=== PATIENT | female | born 1990 | race African-American/Black ===

== ENCOUNTER 2017-03-12 23:35 | Emergency (ER) | payer MEDICAID, MEDICARE ==
[~2017-03-12] VITALS: Ht 167.6 cm; Wt 137.0 kg
[~2017-03-12 23:35] MED LIST: METF850T2 PO
[2017-03-13] MEDS ORDERED: TRAMADOL 50MG TABLET PO ONE (02:45)
[2017-03-13 02:56] LABS: BASOPHILS % 0.7 % (0.0-2.0); EOSINOPHILS % 0.5 % (0.0-5.0); HEMATOCRIT. 35.8 % (36.0-48.0); HEMOGLOBIN. 11.9 g/dL (12.0-16.0); LYMPHOCYTES % 20.2 % (20.0-50.0); MEAN CORPUSCULAR HEMOGLOBIN 24.2 pg (28.0-32.0); MEAN PLATELET VOLUME 8.3 fl (7.4-10.4); MONOCYTES % 9.6 % (2.0-8.0); PLATELET 240 x1000/uL (130-400); RED CELL DISTRIBUTION WIDTH 16.5 % (11.6-14.6)
[2017-03-13 02:56] LABS: CLARITY URINE CLOUDY (CLEAR); COLOR URINE YELLOW (YELLOW); GLUCOSE URINE NEGATIVE (NEGATIVE); KETONES URINE NEGATIVE (NEGATIVE); LEUKOCYTE ESTERASE URINE 3+ (NEGATIVE); NITRITE URINE POSITIVE (NEGATIVE); OCCULT BLOOD URINE 2+ (NEGATIVE); PROTEIN URINE 1+ (NEGATIVE); SPECIFIC GRAVITY URINE 1.015 (1.005-1.030); UROBILINOGEN URINE 0.2 E.U./dL (0.2-1.0)
[2017-03-13 03:04] LABS: PARTIAL THROMBOPLASTIN TIME 27.8 sec (24.0-34.0); PROTHROMBIN TIME 10.5 sec
[2017-03-13 03:12] LABS: CARBON DIOXIDE 27 mEq/L (21-32); CHLORIDE 107 mEq/L (98-107)
[2017-03-13] MEDS ORDERED: AMOXICILLIN/POTASSIUM CLAVULANATE 875/125MG TAB PO ONE (05:45)
[2017-03-13 05:59] VITALS: BP 135/85
[2017-03-14] MEDS ORDERED: JANUVIA (17:46)
[2017-03-14] MEDS ORDERED: LORATIDINE (17:46)
[2017-03-14] MEDS ORDERED: LISINOPRIL (17:46)
[2017-03-14] MEDS ORDERED: GLIP10TA10 PO (17:46)
== END 2017-03-13 06:20 | disposition home or self-care (01) ==
LOC: ER 23:35
DX: N12 Tubulo-interstitial nephritis, not specified as acute or chronic (principal); I10 Essential (primary) hypertension; E11.9 Type 2 diabetes mellitus without complications
CPT/HCPCS: 36415; 80053; 81001; 83690; 85025; 85610; 85730; 99284; Z7610

== ENCOUNTER 2017-03-14 09:51 | Observation (INO) | payer MEDICAID, MEDICARE ==
[~2017-03-14] VITALS: Ht 167.6 cm; Wt 138.4 kg
[2017-03-14] MEDS ORDERED: ACETAMINOPHEN 325MG TABLET PO STA (10:09)
[2017-03-14] MEDS ORDERED: MORPHINE SULFATE 4 MG/ML CPJ (NOT FOR IM USE) IV STA (10:09)
[2017-03-14] MEDS ORDERED: ONDANSETRON HCL 4MG/2ML VIAL IV STA (10:09)
[2017-03-14] MEDS ORDERED: CEFTRIAXONE 1 G PREMIX 50 ML IV ONE (10:15)
[2017-03-14] MEDS ORDERED: SODIUM CHLORIDE 0.9% 1000ML BAG (SEPSIS BOLUS) IV ONE (10:15)
[2017-03-14 10:30] LABS: BASOPHILS % 0.5 % (0.0-2.0); EOSINOPHILS % 0.1 % (0.0-5.0); HEMATOCRIT. 38.3 % (36.0-48.0); HEMOGLOBIN. 12.4 g/dL (12.0-16.0); LYMPHOCYTES % 17.7 % (20.0-50.0); MEAN CORPUSCULAR HEMOGLOBIN 23.7 pg (28.0-32.0); MEAN PLATELET VOLUME 8.6 fl (7.4-10.4); MONOCYTES % 3.4 % (2.0-8.0); NEUTROPHILS % 78.3 % (40.0-76.0); PLATELET 215 x1000/uL (130-400); RED BLOOD CELL COUNT 5.24 mill/uL (4.2-5.4); RED CELL DISTRIBUTION WIDTH 16.5 % (11.6-14.6)
[2017-03-14 10:38] LABS: INR 1.1; PROTHROMBIN TIME 11.9 sec
[2017-03-14 10:46] LABS: HCG SCREEN NEGATIVE
[2017-03-14 10:48] LABS: CARBON DIOXIDE 26 mEq/L (21-32); CHLORIDE 100 mEq/L (98-107); TROPONIN I < 0.02 ng/mL (0.00-0.04)
[2017-03-14] MEDS ORDERED: LEVOFLOXACIN 500MG PREMIX 100 ML IV ONE (11:00)
[2017-03-14] MEDS ORDERED: IBUPROFEN 800MG TABLET PO ONE (11:00)
[2017-03-14 12:03] LABS: GLUCOSE URINE NEGATIVE (NEGATIVE); KETONES URINE 1+ (NEGATIVE); LEUKOCYTE ESTERASE URINE 1+ (NEGATIVE); NITRITE URINE NEGATIVE (NEGATIVE); OCCULT BLOOD URINE 1+ (NEGATIVE); PROTEIN URINE 1+ (NEGATIVE); SPECIFIC GRAVITY URINE 1.014 (1.005-1.030)
[2017-03-14 12:12] LABS: CLARITY URINE CLOUDY (CLEAR); COLOR URINE DARK YELLOW (YELLOW)
[2017-03-14 16:00] VITALS: BP 132/72
[2017-03-14] MEDS ORDERED: SODIUM CHLORIDE 0.45% 1,000 ML IV SCH (17:45)
[2017-03-14] MEDS ORDERED: DEXTROSE 50% WATER 50ML SYRINGE IV PRN (17:45)
[2017-03-14] MEDS ORDERED: HYDROCODONE/ACETAMINOPHEN 5/325MG TABLET PO PRN ×2 (17:45→21:45)
[2017-03-14] MEDS ORDERED: LORATIDINE (17:46)
[2017-03-14] MEDS ORDERED: LISINOPRIL (17:46)
[2017-03-14] MEDS ORDERED: GLIP10TA10 PO (17:46)
[2017-03-14] MEDS ORDERED: JANUVIA (17:46)
[2017-03-14 18:03] VITALS: BP 132/72
[2017-03-14] MEDS ORDERED: ONDANSETRON HCL 4MG/2ML VIAL IV PRN ×2 (19:30→21:45)
[2017-03-14] MEDS: ACETAMINOPHEN 325MG TABLET PO PRN (19:32)
[2017-03-14] MEDS: PANTOPRAZOLE SODIUM 40 MG/VIAL IV SCH (19:43)
[2017-03-14 20:00] VITALS: BP 141/85
[2017-03-14] MEDS: INSULIN LISPRO 100 UNITS/ML SUBCUT SCH (21:03)
[2017-03-14] MEDS: BLOOD SUGAR DIAGNOSTIC STRIP TEST SCH (21:03)
[2017-03-14] MEDS ORDERED: IPRATROPIUM/ALBUTEROL 0.5-3(2.5)MG/3ML NEB INH PRN (21:45)
[2017-03-14] MEDS ORDERED: ACETAMINOPHEN 325MG TABLET PO PRN (21:45)
[2017-03-14] MEDS ORDERED: CLONIDINE 0.1MG TABLET PO PRN (21:45)
[2017-03-14] MEDS: SODIUM CHLORIDE 0.45% 1,000 ML IV SCH (22:28)
[2017-03-14] MEDS: ENOXAPARIN 40MG/0.4ML SYR SUBCUT SCH (22:29)
[2017-03-14 23:30] LABS: CARBON DIOXIDE 26 mEq/L (21-32); CHLORIDE 104 mEq/L (98-107); CREATINE KINASE 164 IU/L (26-192); TROPONIN I 0.03 ng/mL (0.00-0.04)
[2017-03-14] MEDS ORDERED: PIPERACILLIN/TAZOBACTAM 3.375GM/50ML PREMIX IV ONE (23:45)
[2017-03-15] VITALS: BP 126/76
[2017-03-15] MEDS: PIPERACILLIN/TAZ 3.375G PREMIX 50 ML IV SCH ×4 (01:11→18:03)
[2017-03-15] MEDS ORDERED: GENTAMICIN SULFATE 180 MG in SODIUM CHLORIDE 0.9% 100 ML IV NR (02:00)
[2017-03-15 04:00] VITALS: BP 122/80
[2017-03-15 05:47] LABS: BASOPHILS % 0.2 % (0.0-2.0); HEMATOCRIT. 36.1 % (36.0-48.0); HEMOGLOBIN. 11.8 g/dL (12.0-16.0); LYMPHOCYTES % 9.8 % (20.0-50.0); MEAN CORPUSCULAR HEMOGLOBIN 23.9 pg (28.0-32.0); MEAN CORPUSCULAR VOLUME 73.1 fL (81.0-99.0); MEAN PLATELET VOLUME 9.1 fl (7.4-10.4); MONOCYTES % 7.7 % (2.0-8.0); NEUTROPHILS % 82.3 % (40.0-76.0); PLATELET 179 x1000/uL (130-400); RED BLOOD CELL COUNT 4.94 mill/uL (4.2-5.4); RED CELL DISTRIBUTION WIDTH 16.4 % (11.6-14.6)
[2017-03-15] MEDS: BLOOD SUGAR DIAGNOSTIC STRIP TEST SCH ×4 (05:56→21:17)
[2017-03-15] MEDS: INSULIN LISPRO 100 UNITS/ML SUBCUT SCH ×4 (06:07→21:23)
[2017-03-15 06:51] LABS: T4 FREE 1.17 ng/dL (0.76-1.46); TROPONIN I 0.09 ng/mL (0.00-0.04)
[2017-03-15 08:00] VITALS: BP 109/65
[2017-03-15] MEDS: ENOXAPARIN 40MG/0.4ML SYR SUBCUT SCH ×2 (09:00→21:24)
[2017-03-15] MEDS: SODIUM CHLORIDE 0.45% 1,000 ML IV SCH (10:10)
[2017-03-15] MEDS: PANTOPRAZOLE SODIUM 40 MG/VIAL IV SCH (10:10)
[2017-03-15] MEDS: GENTAMICIN SULFATE 140 MG in SODIUM CHLORIDE 0.9% 100 ML IV SCH ×2 (10:10→19:38)
[2017-03-15] MEDS ORDERED: LEVOFLOXACIN 500MG PREMIX 100 ML IV SCH (11:00)
[2017-03-15 11:59] VITALS: BP 118/85
[2017-03-15] MEDS ORDERED: ZOSYN PER PHARMACY XX SCH (14:30)
[2017-03-15 15:57] VITALS: BP 130/89
[2017-03-15 20:00] VITALS: BP 114/74
[2017-03-15] MEDS ORDERED: INSULIN DETEMIR UD 100 UNITS/ML SYR SUBCUT SCH (22:00)
[2017-03-16 00:15] VITALS: BP 113/74
[2017-03-16] MEDS: PIPERACILLIN/TAZ 3.375G PREMIX 50 ML IV SCH ×3 (00:29→11:46)
[2017-03-16] MEDS: SODIUM CHLORIDE 0.45% 1,000 ML IV SCH (01:15)
[2017-03-16] MEDS: GENTAMICIN SULFATE 140 MG in SODIUM CHLORIDE 0.9% 100 ML IV SCH ×2 (01:15→10:10)
[2017-03-16] MEDS: ACETAMINOPHEN 325MG TABLET PO PRN (03:21)
[2017-03-16 04:00] VITALS: BP 132/94
[2017-03-16] MEDS: BLOOD SUGAR DIAGNOSTIC STRIP TEST SCH ×2 (05:54→11:10)
[2017-03-16] MEDS: INSULIN LISPRO 100 UNITS/ML SUBCUT SCH ×2 (06:27→11:52)
[2017-03-16 08:00] VITALS: BP 118/83
[2017-03-16] MEDS: ENOXAPARIN 40MG/0.4ML SYR SUBCUT SCH (08:23)
[2017-03-16 08:48] LABS: CARBON DIOXIDE 28 mEq/L (21-32); CHLORIDE 102 mEq/L (98-107)
[2017-03-16 08:51] LABS: GENTAMICIN TROUGH 0.6 ug/mL (<2.0)
[2017-03-16] MEDS ORDERED: FAMOTIDINE 20MG/2ML VIAL IV SCH (09:00)
[2017-03-16 12:00] VITALS: BP 120/94
[2017-03-16 13:35] VITALS: BP 129/94
[2017-03-16] MEDS ORDERED: GENTAMICIN SULFATE 180 MG in SODIUM CHLORIDE 0.9% 100 ML IV SCH (18:00)
== END 2017-03-16 15:03 | disposition home or self-care (01) ==
LOC: ER 09:52 → 5WST 10:38 → INTOOBSV 10:38 → EDBEDREQ 10:39 → EDBEDREQSVC 10:39 → ENRESERV 14:29
PROVIDERS: ADMIT Internal Medicine; ATTEND Internal Medicine
DX: A41.9 Sepsis, unspecified organism (principal); N39.0 Urinary tract infection, site not specified; R11.2 Nausea with vomiting, unspecified; E11.9 Type 2 diabetes mellitus without complications; I10 Essential (primary) hypertension; E11.65 Type 2 diabetes mellitus with hyperglycemia; E66.01 Morbid (severe) obesity due to excess calories; Z90.49 Acquired absence of other specified parts of digestive tract; Z87.440 Personal history of urinary (tract) infections
CPT/HCPCS: 36415; 71010; 74176; 80048; 80053; 80061; 80170; 81001; 81025; 82550; 82962; 83605; 83690; 83880; 84439; 84443; 84484; 84703; 85025; 85610; 87040; 87077; 87086; 87186; 93005; 96361; 96365; 96367; 96368; 96372; 96375; 96376; 99291; C9113; G0378; J0696; J1580; J1650; J1815; J1956; J2270; J2405; J2543; J3490; J7030; J7050